=== PATIENT | female | born 1935 | race Caucasian/White ===

== ENCOUNTER 2016-10-26 09:56 | Outpatient (CLI) | payer MEDICARE, OTHER ==
--- NOTE | 2016-10-27 16:07 | Mammography Report ---
DIGITAL SCREENING MAMMOGRAM: 10/26/2016 CLINICAL INDICATION: A 80-year-old, for screening. COMPARISON: 09/2015, 08/2014, 01/2013, 03/2011, 04/2009. TECHNIQUE: Routine CC and MLO projections were obtained of the breasts. FINDINGS: The breasts again demonstrate scattered fibroglandular densities bilaterally. Coarse and p unctate, typically benign calcifications are present. No suspicious masses, clustered microcalcificat ions, or regions of architectural distortion are identified. IMPRESSION: BENIGN FINDINGS. RECOMMENDATION: ROUTINE ANNUAL SCREENING UNLESS OTHERWISE CLINICALLY INDICATED. BIRADS CATEGORY 2-BENIGN FINDINGS. STANDARD QUALIFYING STATEMENTS 1. This examination was reviewed with the aid of Computer-Aided Detection (CAD). 2. A negative or benign imaging report should not delay biopsy if clinically suspicious findings are present. Consider surgical consultation if warranted. More than 5% of cancers are not identified by i maging. 3. Dense breasts may obscure an underlying neoplasm. JOB #: [id number] EXT JOB #:[id number]
== END 2016-10-26 09:57 | disposition home or self-care (01) ==
LOC: DI 09:56
PROVIDERS: ATTEND Internal Medicine
DX: Z12.31 Encounter for screening mammogram for malignant neoplasm of breast (principal)
CPT/HCPCS: 77067

== ENCOUNTER 2017-04-04 15:23 | Outpatient (CLI) | payer MEDICARE, OTHER ==
--- NOTE | 2017-04-04 16:54 | XRAY Report ---
THREE VIEW RIGHT ANKLE: 04/04/2017 CLINICAL INDICATION: Pain. FINDINGS: AP, lateral, and oblique views of the right ankle demonstrate mild osteoarthritic changes. Plantar and posterior calcaneal spurring is present. There is no evidence of acute fracture or dislocation. Soft tissue swelling is noted. IMPRESSION: SOFT TISSUE SWELLING, BUT NO EVIDENCE OF ACUTE FRACTURE. TD: 04/04/2017 16:53
--- NOTE | 2017-04-04 16:56 | XRAY Report ---
THREE VIEW RIGHT FOOT: 04/04/2017 CLINICAL INDICATION: Pain. FINDINGS: AP, lateral, and oblique views of the right foot demonstrate no evidence of fracture or dislocation. Mild osteoarthritis is present. No foreign body is seen in the soft tissues. IMPRESSION: MILD OSTEOARTHRITIS. NO EVIDENCE OF FRACTURE. TD: 04/04/2017 16:55
== END 2017-04-04 15:24 | disposition home or self-care (01) ==
LOC: DI 15:23
PROVIDERS: ATTEND Internal Medicine
DX: M19.071 Primary osteoarthritis, right ankle and foot (principal); R22.41 Localized swelling, mass and lump, right lower limb

== ENCOUNTER 2018-03-17 05:30 | Outpatient (CLI) | payer MEDICARE, OTHER | END 2018-03-17 05:31 | disposition home or self-care (01) | LOC: EMS 05:30 | PROVIDERS: ATTEND Surgery | DX: R20.2 Paresthesia of skin (principal); I10 Essential (primary) hypertension | CPT/HCPCS: A0425; A0429 ==

== ENCOUNTER 2018-03-17 05:38 | Emergency (ER) | payer MEDICARE, OTHER ==
[2018-03-17] MEDS ORDERED: BUTALB/ACETAM/CAFF 50/325/40MG TABLET PO STA (05:50)
--- NOTE | 2018-03-17 06:03 | ED Physician Documentation ---
History of Present Illness - Stated complaint Stated Complaint: BILAT TINGLING FINGERTIPS - Chief complaint Chief Complaint: Ext Problem - History obtained from History obtained from: Patient - History of Present Illness Timing: Today Pain level max: 4 Pain level now: 4 - Additonal information Additional information: 82-year-old female who states she woke up at 445 this morning and felt tingling to both of her hands. She was sleeping on her stomach with her hands tucked underneath her. Symptoms are now resolving. No focal neurological deficits otherwise. No difficulty with speech. No difficulty walking. No numbness or tingling the other place besides the hands. No changes to her medications. Better with time, worse with sleeping on the hands. Patient also has a headache over the frontal sinuses. Gradual onset. Has been associated with nasal congestion and sinus pressure. Review of Systems Ten Systems: 10 systems reviewed and negative Constitutional: denies: Fever, Chills Nose: reports: Congestion, Sinus pressure / pain (Patient states that she has had sinus pressure for the past 6 weeks. This is been accompanied by intermittent headaches). denies: Rhinorrhea / runny nose Throat: denies: Sore throat Respiratory: denies: Cough GI: denies: Abdominal Pain, Nausea, Vomiting, Diarrhea Skin: denies: Rash Musculoskeletal: denies: Neck pain, Back pain Neurologic: denies: Focal weakness, Confused, Altered mental status, Head injury, LOC PD PAST MEDICAL HISTORY - Past Medical History Past Medical History: Yes Cardiovascular: Hypertension, High cholesterol Respiratory: None Neuro: TIA Endocrine/Autoimmune: None GI: None : None HEENT: Other Psych: None Musculoskeletal: Osteoarthritis, Other Derm: None - Past Surgical History Past Surgical History: Yes General: Appendectomy 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 - Present Medications Home Medications: Ambulatory Orders Medication Instructions Recorded Confirmed Ascorbate Calcium [Vitamin C] 480 gm PO DAILY 05/14/13 03/17/18 Colestipol HCl 1 gm PO BID 05/14/13 03/17/18 Ginkgo Biloba 400 mg PO DAILY 05/14/13 03/17/18 Glucosamine Sulfate Dipot Chlr 1,000 mg PO DAILY 05/14/13 03/17/18 [Glucosamine] Multivit-Min/FA/Lycopene/Lut 1 each PO DAILY 05/14/13 03/17/18 [Centrum Silver Tablet] [place]-3/Dha/Epa/Fish Oil [Fish Oil] 1,200 mg PO DAILY 05/14/13 03/17/18 Ubidecarenone [Co Q-10] 10 mg PO DAILY 05/14/13 03/17/18 Vitamin B Complex [Super B-50 1 each PO DAILY 05/14/13 03/17/18 Complex] Vitamin E 400 unit PO DAILY 05/14/13 03/17/18 Meloxicam [Mobic] 7.5 mg PO DAILY 11/20/14 03/17/18 Olmesartan/Hydrochlorothiazide 1 each PO DAILY 11/20/14 03/17/18 [Benicar Hct 40-25 mg Tablet] Butalb/Acetaminophen/Caffeine 1 cap PO Q6H PRN #14 capsule 03/17/18 [Fioricet 50-300-40 mg Capsule] Mometasone Furoate [Nasonex] 2 spray NS DAILY PRN #1 spray.pump 03/17/18 - Allergies Allergies/Adverse Reactions: Allergies Allergy/AdvReac Type Severity Reaction Status Date / Time Penicillins Allergy Severe Throat Verified 03/17/18 05:45 Swelling - Social History Does the pt smoke?: No Smoking Status: Never smoker Does the pt drink ETOH?: No Does the pt have substance abuse?: No - Immunizations Immunizations are current?: Yes - POLST Patient has POLST: No PD ED PE NORMAL - Vitals Vital signs reviewed: Yes - General General: Alert and oriented X 3, No acute distress - HEENT HEENT: PERRL, Moist mucous membranes, Pharynx benign - Neck Neck: Supple, no meningeal sign - Cardiac Cardiac: RRR, Strong equal pulses - Respiratory Respiratory: No respiratory distress, Clear bilaterally - Abdomen Abdomen: Soft, Non tender, Non distended - Back Back: No CVA TTP, No spinal TTP - Derm Derm: Warm and dry - Extremities Extremities: No edema, No calf tenderness / cord - Neuro Neuro: Alert and oriented X 3, excellence leader 2-12 intact, No motor deficit, No sensory deficit, Normal speech Eye Opening: Spontaneous Motor: Obeys Commands Verbal: Oriented GCS Score: 15 - Psych Psych: Normal mood, Normal affect Results - Vitals Vitals: Vital Signs - 24 hr 03/17/18 03/17/18 03/17/18 05:42 06:17 06:34 Temperature 36.1 C L Heart Rate 88 80 78 Respiratory 15 16 16 Rate Blood Pressure 153/93 H 156/84 H 156/84 H O2 Saturation 99 98 96 Oxygen O2 Source [With Activity] Room air O2 Source [Without Activity] Room air O2 Source Room air - Labs Labs: Laboratory Tests 03/17/18 03/17/18 05:50 05:50 WBC 5.4 RBC 4.65 Hgb 14.4 Hct 41.8 MCV 89.9 MCH 30.9 MCHC 34.4 RDW 13.2 Plt Count 221 MPV 8.4 Neut # (Auto) 2.8 Lymph # (Auto) 1.6 [place] # (Auto) 0.6 Eos # (Auto) 0.4 Baso # (Auto) 0.1 Absolute Nucleated RBC 0.00 Nucleated RBC % 0.1 Sodium 136 Potassium 3.6 Chloride 101 Carbon Dioxide 24 Anion Gap 11.0 BUN 24 H Creatinine 0.8 Estimated GFR (MDRD) 69 L Glucose 173 H Calcium 9.2 Phosphorus 3.2 Magnesium 2.1 PD MEDICAL DECISION MAKING - ED course Complexity details: reviewed results, re-evaluated patient, considered differential, d/w patient ED course: 82-year-old female with paresthesias to the bilateral hands, likely secondary to sleeping on the hands and compressing the nerves. No acute laboratory abnormalities. No evidence of stroke. No evidence of brain tumor. Ambulating normally. Will follow up with her PCP for further care. Also appears to have sinus congestion causing headaches, improved with butalbital. Will place on intranasal steroids. No fevers. Will hold antibiotics. Patient counseled regarding signs and symptoms for which I believe and urgent re-evaluation would be necessary. Patient with good understanding of and agreement to plan and is comfortable going home at this time This document was made in part using voice recognition software. While efforts are made to proofread this document, sound alike and grammatical errors may occur. Departure - Departure Disposition: 01 Home, Self Care Clinical Impression: Paresthesia of both hands Sinusitis Qualifiers: Sinusitis location: pansinusitis Chronicity: acute Recurrence: non-recurrent Qualified Code(s): J01.40 - Acute pansinusitis, unspecified Condition: Good Instructions: ED Headache Sinus, ED Sinusitis No Abx, ED Paraesthesias Follow-Up: Namrata Gutierrez MD [Primary Care Provider] - Within 1 week Prescriptions: Butalb/Acetaminophen/Caffeine [Fioricet 50-300-40 mg Capsule] 1 cap PO Q6H PRN #14 capsule PRN Reason: Headache Mometasone Furoate [Nasonex] 2 spray NS DAILY PRN #1 spray.pump PRN Reason: Nasal Congestion Comments: use the medications as prescribed. Return if you worsen. Follow-up with your doctor for further care. There are no acute lab abnormalities to explain your symptoms today. NIHSS - Time Time: 05:45 - Level of Consciousness Level of consciousness: (0) Alert, Keenly responsive LOC Questions: (0) Answers both Q's correct LOC Commands: (0) Performs both correctly - Gaze Best Gaze: (0) Normal - Visual Visual: (0) No loss - Facial Palsy Facial Palsy: (0) Normal, symmetrical movement - Motor Arms (both separate) Motor Arm (right): (0) No drift Motor Arm (left): (0) No drift - Motor Legs (both separate) Motor Leg (right): (0) No drift Motor Leg (left): (0) No drift - Limb Ataxia Limb Ataxia: (0) Absent - Sensory Sensory: (0) Normal - Best Language Best Language: (0) No aphasia - Dysarthria Dysarthria: (0) Normal - Extinction and Inattention (formally neg Extinction and inattention: (0) No abnormality - Total Score/Results Total Score/Result: 0
[2018-03-17 06:09] LABS: BASOPHILS # (AUTO) 0.1 10^3/uL (0.0-0.1); EOSINOPHILS # (AUTO) 0.4 10^3/uL (0.0-0.7); HGB - HEMOGLOBIN 14.4 g/dL (12.0-16.0); LYMPHOCYTES # (AUTO) 1.6 10^3/uL (1.5-3.5); MEAN CORPUSCULAR HEMOGLOBIN 30.9 pg (27.0-31.0); MEAN CORPUSCULAR HGB CONC 34.4 g/dL (32.0-36.0); MEAN CORPUSCULAR VOLUME 89.9 fL (81.0-99.0); MEAN PLATELET VOLUME 8.4 fL (7.9-10.8); MONOCYTES # (AUTO) 0.6 10^3/uL (0.0-1.0); MONOCYTES % (AUTO) 10.4 %; NEUTROPHILS # (AUTO) 2.8 10^3/uL (1.5-6.6); NEUTROPHILS % (AUTO) 51.6 %; PLT - PLATELET COUNT 221 10^3/uL (130-450); RED BLOOD COUNT 4.65 10^6/uL (4.20-5.40); RED CELL DISTRIBUTION WIDTH 13.2 % (12.0-15.0); WHITE BLOOD COUNT 5.4 x10^3/uL (4.8-10.8)
[2018-03-17] MEDS ORDERED: BUTALB/ACETAM/CAFF 50/325/40MG TABLET PO ONE (06:17)
[2018-03-17 06:19] LABS: CALCIUM 9.2 mg/dL (8.5-10.3); CREATININE 0.8 mg/dL (0.4-1.0); MAGNESIUM 2.1 mg/dL (1.7-2.8); PHOSPHORUS 3.2 mg/dL (2.5-4.6)
[2018-03-17 07:13] VITALS: BP 146/75
== END 2018-03-17 07:14 | disposition home or self-care (01) ==
LOC: EDUNIT# → ED 05:38
DX: R20.2 Paresthesia of skin (principal); I10 Essential (primary) hypertension; E78.00 Pure hypercholesterolemia, unspecified
CPT/HCPCS: 36415; 80048; 83735; 84100; 85025; 99283; A9270

== ENCOUNTER 2018-03-30 09:14 | Outpatient (CLI) | payer MEDICARE, OTHER ==
--- NOTE | 2018-03-30 12:52 | Ultrasound Report ---
Reason: ELEVATED LFT'S Procedure Date: 03/30/2018 Accession Number: [id number] / [id number] Procedure: US - Abdomen Limited CPT Code: FULL RESULT: EXAM: ABDOMEN ULTRASOUND LIMITED, RUQ EXAM DATE: 03/30/2018 10:35 AM. CLINICAL HISTORY: Elevated LFTs. COMPARISON: None. TECHNIQUE: Real-time scanning was performed with static images obtained. FINDINGS: Liver: Diffusely increased in echotexture favoring steatosis. There are multiple simple-appearing cysts noted with 2 adjacent cysts in the medial left lobe larger of which measures 2 cm. Clustered cyst in the right lateral lobe measuring 1.7 cm. Clustered cysts right anterior medial liver measuring 2.2 cm. 16.9 cm. Main portal vein flow: Hepatopetal. Gallbladder: Normal. No stones, wall thickening, or sonographic Tang's sign. Biliary System: CBD measures 5.7 mm. No intrahepatic or extrahepatic ductal dilatation. Other: Normal appearance of the right kidney. IMPRESSION: 1. Diffusely echogenic liver favors steatosis. 2. Scattered parenchymal cysts as described. RADIA
== END 2018-03-30 09:15 | disposition home or self-care (01) ==
LOC: DI 09:14
PROVIDERS: ATTEND Internal Medicine
DX: K76.0 Fatty (change of) liver, not elsewhere classified (principal); K76.89 Other specified diseases of liver; R74.8 Abnormal levels of other serum enzymes
CPT/HCPCS: 76705

== ENCOUNTER 2018-04-19 05:25 | Emergency (ER) | payer MEDICARE, OTHER ==
[2018-04-19 06:04] LABS: BASOPHILS % (AUTO) 0.9 %; EOSINOPHILS # (AUTO) 0.4 10^3/uL (0.0-0.7); EOSINOPHILS % (AUTO) 6.8 %; HGB - HEMOGLOBIN 14.6 g/dL (12.0-16.0); LYMPHOCYTES # (AUTO) 1.6 10^3/uL (1.5-3.5); LYMPHOCYTES % (AUTO) 28.2 %; MEAN CORPUSCULAR HEMOGLOBIN 29.9 pg (27.0-31.0); MEAN CORPUSCULAR HGB CONC 33.5 g/dL (32.0-36.0); MEAN CORPUSCULAR VOLUME 89.5 fL (81.0-99.0); MEAN PLATELET VOLUME 8.6 fL (7.9-10.8); MONOCYTES # (AUTO) 0.5 10^3/uL (0.0-1.0); MONOCYTES % (AUTO) 9.8 %; NEUTROPHILS % (AUTO) 54.3 %; PLT - PLATELET COUNT 196 10^3/uL (130-450); RED BLOOD COUNT 4.87 10^6/uL (4.20-5.40); RED CELL DISTRIBUTION WIDTH 13.4 % (12.0-15.0); WHITE BLOOD COUNT 5.6 x10^3/uL (4.8-10.8)
[2018-04-19 06:17] LABS: ALBUMIN 4.3 g/dL (3.2-5.5); ALBUMIN/GLOBULIN RATIO 1.6 (1.0-2.2); BILIRUBIN,TOTAL 0.8 mg/dL (0.2-1.0); CALCIUM 9.5 mg/dL (8.5-10.3); CREATININE 0.8 mg/dL (0.4-1.0)
--- NOTE | 2018-04-19 06:29 | XRAY Report ---
Reason: chest pain Procedure Date: 04/19/2018 Accession Number: [id number] / [id number] Procedure: XR - Chest 2 View X-Ray CPT Code: 30711 FULL RESULT: EXAM: CHEST RADIOGRAPHY EXAM DATE: 04/19/2018 06:17 AM. CLINICAL HISTORY: Chest pain. COMPARISON: CHEST 2 VIEW PA/LAT 11/20/2014 8:21 AM. TECHNIQUE: 2 views. FINDINGS: Lungs/Pleura: Focal opacity at the left apex. No pleural effusion seen. No pneumothorax. Mediastinum: Heart size appears normal. Aortic atherosclerosis. Other: None. IMPRESSION: 1. Focal 3 cm opacity at the left apex. Malignancy not excluded. RADIA
[2018-04-19] MEDS ORDERED: LIDOCAINE PATCH 5% TOP STA (06:48)
--- NOTE | 2018-04-19 06:51 | ED Physician Documentation ---
PD HPI CHEST PAIN - Stated complaint Stated Complaint: LT RIB PAIN - Chief complaint Chief Complaint: General - History obtained from History obtained from: Patient - History of Present Illness Timing - onset: How many hours ago (3) Timing - onset during: Sleep Timing - duration: Hours (3) Timing - details: Gradual onset Pain level max: 7 Pain level now: 7 Severity Comments: moderate Quality: Aching Location: Left chest Radiation: No: Jaw, Neck, Back, Abdominal Improved by: Rest Worsened by: Movement Associated symptoms: No: Shortness of air, Diaphoresis, Nausea Review of Systems Ten Systems: 10 systems reviewed and negative Constitutional: reports: Reviewed and negative Eyes: reports: Reviewed and negative Ears: reports: Reviewed and negative Nose: reports: Reviewed and negative Throat: reports: Reviewed and negative Cardiac: reports: Reviewed and negative Respiratory: reports: Reviewed and negative GI: reports: Reviewed and negative : reports: Reviewed and negative Skin: reports: Reviewed and negative Musculoskeletal: reports: Reviewed and negative Neurologic: reports: Reviewed and negative Psychiatric: reports: Reviewed and negative Endocrine: reports: Reviewed and negative Immunocompromised: reports: Reviewed and negative PD PAST MEDICAL HISTORY - Past Medical History Past Medical History: Yes Cardiovascular: Hypertension, High cholesterol, Deep vein thrombosis Respiratory: None Neuro: TIA Endocrine/Autoimmune: None GI: None : None HEENT: Other Psych: None Musculoskeletal: Osteoarthritis, Other Derm: None - Past Surgical History Past Surgical History: Yes General: Appendectomy 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 Medications Home Medications: Ambulatory Orders Medication Instructions Recorded Confirmed Ascorbate Calcium [Vitamin C] 480 gm PO DAILY 05/14/13 03/17/18 Colestipol HCl 1 gm PO BID 05/14/13 03/17/18 Ginkgo Biloba 400 mg PO DAILY 05/14/13 03/17/18 Glucosamine Sulfate Dipot Chlr 1,000 mg PO DAILY 05/14/13 03/17/18 [Glucosamine] Multivit-Min/FA/Lycopene/Lut 1 each PO DAILY 05/14/13 03/17/18 [Centrum Silver Tablet] [place]-3/Dha/Epa/Fish Oil [Fish Oil] 1,200 mg PO DAILY 05/14/13 03/17/18 Ubidecarenone [Co Q-10] 10 mg PO DAILY 05/14/13 03/17/18 Vitamin B Complex [Super B-50 1 each PO DAILY 05/14/13 03/17/18 Complex] Vitamin E 400 unit PO DAILY 05/14/13 03/17/18 Meloxicam [Mobic] 7.5 mg PO DAILY 11/20/14 03/17/18 Olmesartan/Hydrochlorothiazide 1 each PO DAILY 11/20/14 03/17/18 [Benicar Hct 40-25 mg Tablet] Butalb/Acetaminophen/Caffeine 1 cap PO Q6H PRN #14 capsule 03/17/18 [Fioricet 50-300-40 mg Capsule] Mometasone Furoate [Nasonex] 2 spray NS DAILY PRN #1 spray.pump 03/17/18 - Allergies Allergies/Adverse Reactions: Allergies Allergy/AdvReac Type Severity Reaction Status Date / Time Penicillins Allergy Severe Throat Verified 04/19/18 05:39 Swelling - Living Situation Living Situation: reports: With spouse/s.o. Living Arrangement: reports: At home - Social History Does the pt smoke?: No Smoking Status: Never smoker Does the pt drink ETOH?: No Does the pt have substance abuse?: No - Family History Family history: reports: Other (Reviewed and not pertinent) - Immunizations Immunizations are current?: Yes - POLST Patient has POLST: No PD ED PE NORMAL - Vitals Vital signs reviewed: Yes - General General: Alert and oriented X 3, No acute distress - HEENT HEENT: PERRL - Neck Neck: Supple, no meningeal sign - Cardiac Cardiac: RRR, No murmur, Other (Left chest wall tender to palpation.) - Respiratory Respiratory: Clear bilaterally - Abdomen Abdomen: Normal bowel sounds, Soft, Non tender, Non distended - Derm Derm: Warm and dry - Extremities Extremities: No deformity - Neuro Neuro: Alert and oriented X 3 - Psych Psych: Normal mood, Normal affect Results - Vitals Vitals: Vital Signs - 24 hr 04/19/18 04/19/18 05:30 06:02 Temperature 36.1 C L Heart Rate 92 84 Respiratory 17 11 L Rate Blood Pressure 129/81 H 160/81 H O2 Saturation 99 95 Oxygen O2 Source [With Activity] Room air O2 Source [Without Activity] Room air O2 Source Room air - EKG (time done) 0650 Rhythm: NSR Pimento: Normal Intervals: Normal AR, QRS normal QRS: Normal Ischemia: Normal ST segments - Labs Labs: Laboratory Tests 04/19/18 04/19/18 04/19/18 05:55 05:55 05:55 WBC 5.6 RBC 4.87 Hgb 14.6 Hct 43.6 MCV 89.5 MCH 29.9 MCHC 33.5 RDW 13.4 Plt Count 196 MPV 8.6 Neut # (Auto) 3.0 Lymph # (Auto) 1.6 [place] # (Auto) 0.5 Eos # (Auto) 0.4 Baso # (Auto) 0.0 Absolute Nucleated RBC 0.00 Nucleated RBC % 0.0 D-Dimer Sodium 137 Potassium 3.4 L Chloride 101 Carbon Dioxide 25 Anion Gap 11.0 BUN 19 Creatinine 0.8 Estimated GFR (MDRD) 69 L Glucose 189 H Calcium 9.5 Total Bilirubin 0.8 AST 31 ALT 40 Alkaline Phosphatase 66 Troponin I < 0.04 Total Protein 7.0 Albumin 4.3 Globulin 2.7 Albumin/Globulin Ratio 1.6 Lipase 33 04/19/18 05:55 WBC RBC Hgb Hct MCV MCH MCHC RDW Plt Count MPV Neut # (Auto) Lymph # (Auto) [place] # (Auto) Eos # (Auto) Baso # (Auto) Absolute Nucleated RBC Nucleated RBC % D-Dimer 236.9 Sodium Potassium Chloride Carbon Dioxide Anion Gap BUN Creatinine Estimated GFR (MDRD) Glucose Calcium Total Bilirubin AST ALT Alkaline Phosphatase Troponin I Total Protein Albumin Globulin Albumin/Globulin Ratio Lipase - Rads (name of study) Chest XRAY Radiology: Final report received (3 cm left apical opacity) PD MEDICAL DECISION MAKING - ED course Complexity details: reviewed results, re-evaluated patient, considered differential, d/w patient, d/w family ED course: 82-year-old female with several hours of left chest wall pain.Lung apex. CT chest with contrast pending at time of sign out to incoming provider. X-ray showed 3 cm opacity on the left unremarkable EKG, unremarkable labs including a negative troponin. D-dimer is negative with no clinical indication of pulmonary embolism. No evidence of dissection on chest x-ray.
[2018-04-19] MEDS ORDERED: IOVERSOL 320 100 ML VIAL IVP ONE ×2 (07:10→07:34)
--- NOTE | 2018-04-19 07:44 | CT Report ---
Reason: Left lung mass w pain Procedure Date: 04/19/2018 Accession Number: [id number] / [id number] Procedure: CT - CHEST W CPT Code: FULL RESULT: EXAM: CT CHEST EXAM DATE: 04/19/2018 07:30 AM. CLINICAL HISTORY: Left lung mass w pain. COMPARISONS: CHEST 2 VIEW 04/19/2018 5:53 AM. TECHNIQUE: Routine helical CT imaging was performed through the chest. IV contrast: None. Reconstructions: Coronal and sagittal. In accordance with CT protocol optimization, one or more of the following dose reduction techniques were utilized for this exam: automated exposure control, adjustment of mA and/or KV based on patient size, or use of iterative reconstructive technique. FINDINGS: Lungs/Pleura: Left apical mass with spiculated margins and pleural tail is noted measuring 3.2 x 2.9 cm. Additional 2 cm patchy focal inferior and lateral right upper lobe perifissural opacity seen (4/31). Tiny indeterminate 2 mm left lower lobe subpleural micronodule (4/42). Scattered pleural parenchymal scarring noted. No other consolidation. Bilateral central bronchial wall thickening is seen. No pleural effusions or pneumothorax. Mediastinum: Heterogeneous attenuation of the thyroid noted. Normal heart size. No pericardial effusion. Coronary artery calcification seen. Mild calcified atheromatous plaque of the aortic arch. No enlarged mediastinal hilar lymph nodes are seen. No central pulmonary artery filling defects. Bones: Focal sclerosis of the left lateral fifth rib is seen (3/25). No other focal lucent or sclerotic osseous lesions evident. Visualized Abdomen: Hypoattenuating liver lesions are noted in the right lobe measuring 2 cm and 2.8 cm respectively (3/68), indeterminate. Hepatic steatosis evident. Other: None. IMPRESSION: 1. 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 2. 2 cm patchy right upper lobe perifissural opacities indeterminate, possibly representing nonspecific infection or inflammation, however, metastasis not excluded. 3. No other focal airspace consolidation noted. Mild central bronchial wall thickening could reflect sequelae of chronic reactive airways or bronchitis. 4. No mediastinal or hilar lymphadenopathy. 5. Focal sclerosis of the left lateral fifth rib could represent metastatic disease. No other suspicious osseous lesions seen on CT. Correlation with nuclear bone scan should be considered for further evaluation. 6. Incidental hypoattenuating liver lesions are indeterminate. Dedicated liver MRI could be obtained for further evaluation. RADIA
--- NOTE | 2018-04-19 08:04 | ED Physician Documentation ---
PD HPI CHEST PAIN - Stated complaint Stated Complaint: LT RIB PAIN - Chief complaint Chief Complaint: General - History obtained from History obtained from: Patient, Family - History of Present Illness Timing - onset: How many days ago (4) Timing - onset during: Rest Timing - duration: Days (4) Timing - details: Gradual onset, Still present Pain level max: 7 Pain level now: 7 Quality: Sharp, Pain Location: Left chest Improved by: Rest Worsened by: Palpation, Position Associated symptoms: No: Shortness of air, Diaphoresis, Nausea, Vomiting, Feeling faint / dizzy, General Weakness, Palpitations, Cough, Other Similar symptoms before: Has not had sx before Recently seen: Not recently seen - Additional information Additional information: Previously well 82-year-old female has noticed a pain in her left chest wall that is specifically tender to palpation. She denies any respiratory component or skin changes. 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 - Present Medications Home Medications: Ambulatory Orders Medication Instructions Recorded Confirmed Ascorbate Calcium [Vitamin C] 480 gm PO DAILY 05/14/13 03/17/18 Colestipol HCl 1 gm PO BID 05/14/13 03/17/18 Ginkgo Biloba 400 mg PO DAILY 05/14/13 03/17/18 Glucosamine Sulfate Dipot Chlr 1,000 mg PO DAILY 05/14/13 03/17/18 [Glucosamine] Multivit-Min/FA/Lycopene/Lut 1 each PO DAILY 05/14/13 03/17/18 [Centrum Silver Tablet] [place]-3/Dha/Epa/Fish Oil [Fish Oil] 1,200 mg PO DAILY 05/14/13 03/17/18 Ubidecarenone [Co Q-10] 10 mg PO DAILY 05/14/13 03/17/18 Vitamin B Complex [Super B-50 1 each PO DAILY 05/14/13 03/17/18 Complex] Vitamin E 400 unit PO DAILY 05/14/13 03/17/18 Meloxicam [Mobic] 7.5 mg PO DAILY 11/20/14 03/17/18 Olmesartan/Hydrochlorothiazide 1 each PO DAILY 11/20/14 03/17/18 [Benicar Hct 40-25 mg Tablet] Butalb/Acetaminophen/Caffeine 1 cap PO Q6H PRN #14 capsule 03/17/18 [Fioricet 50-300-40 mg Capsule] Mometasone Furoate [Nasonex] 2 spray NS DAILY PRN #1 spray.pump 03/17/18 - Allergies Allergies/Adverse Reactions: Allergies Allergy/AdvReac Type Severity Reaction Status Date / Time Penicillins Allergy Severe Throat Verified 04/19/18 05:39 Swelling - Social History Does the pt smoke?: No Smoking Status: Never smoker Does the pt drink ETOH?: No Does the pt have substance abuse?: No - Immunizations Immunizations are current?: Yes - POLST Patient has POLST: No PD ED PE NORMAL - Vitals Vital signs reviewed: Yes (hypertensive) - General General: Alert and oriented X 3, No acute distress, Well developed/nourished - Respiratory Respiratory: No respiratory distress, Other (Tenderness to the lateral 9th rib ) - Abdomen Abdomen: Soft, Non tender - Derm Derm: Normal color, Warm and dry, No rash - Extremities Extremities: No deformity, No edema - Neuro Neuro: Alert and oriented X 3, v groove cutter 2-12 intact, No motor deficit, No sensory deficit, Normal speech Eye Opening: Spontaneous Motor: Obeys Commands Verbal: Oriented GCS Score: 15 - Psych Psych: Normal mood, Normal affect Results - Vitals Vitals: Vital Signs - 24 hr 04/19/18 04/19/18 04/19/18 05:30 06:02 08:00 Temperature 36.1 C L Heart Rate 92 84 87 Respiratory 17 11 L 18 Rate Blood Pressure 129/81 H 160/81 H 147/83 H O2 Saturation 99 95 94 Oxygen O2 Source [] Room air O2 Source [] Room air O2 Source Room air - Labs Labs: Laboratory Tests 04/19/18 04/19/18 04/19/18 05:55 05:55 05:55 WBC 5.6 RBC 4.87 Hgb 14.6 Hct 43.6 MCV 89.5 MCH 29.9 MCHC 33.5 RDW 13.4 Plt Count 196 MPV 8.6 Neut # (Auto) 3.0 Lymph # (Auto) 1.6 [place] # (Auto) 0.5 Eos # (Auto) 0.4 Baso # (Auto) 0.0 Absolute Nucleated RBC 0.00 Nucleated RBC % 0.0 D-Dimer Sodium 137 Potassium 3.4 L Chloride 101 Carbon Dioxide 25 Anion Gap 11.0 BUN 19 Creatinine 0.8 Estimated GFR (MDRD) 69 L Glucose 189 H Calcium 9.5 Total Bilirubin 0.8 AST 31 ALT 40 Alkaline Phosphatase 66 Troponin I < 0.04 Total Protein 7.0 Albumin 4.3 Globulin 2.7 Albumin/Globulin Ratio 1.6 Lipase 33 04/19/18 05:55 WBC RBC Hgb Hct MCV MCH MCHC RDW Plt Count MPV Neut # (Auto) Lymph # (Auto) [place] # (Auto) Eos # (Auto) Baso # (Auto) Absolute Nucleated RBC Nucleated RBC % D-Dimer 236.9 Sodium Potassium Chloride Carbon Dioxide Anion Gap BUN Creatinine Estimated GFR (MDRD) Glucose Calcium Total Bilirubin AST ALT Alkaline Phosphatase Troponin I Total Protein Albumin Globulin Albumin/Globulin Ratio Lipase - Rads (name of study) CT chest Radiology: Prelim report reviewed (Impression: 1. 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 2 2 cm patchy right upper lobe perifissural opacities indeterminate, possibly representing nonspecific infection or inflammation, however metastasis is not excluded. 3 No other focal airspace consolidation noted. Mild central bronchial wall thickening could reflect sequelae of chronic reactive airways or bronchitis. 4 No mediastinal or hilar lymphadenopathy. 5. Focal sclerosis of the left lateral fifth rib could represent metastatic disease. No other suspicious osseous lesions seen on CT. Correlation with nuclear bone scan should be considered for further evaluation. 6. Incidental hypoattenuating liver lesions are indeterminate. Dedicated liver MRI could be obtained for further evaluation.), EMP read indepedently, See rad report PD MEDICAL DECISION MAKING - ED course Complexity details: reviewed old records, reviewed results, considered differential, d/w patient, d/w family ED course: Previously well non-smoking 82-year-old female has developed left lateral chest wall pain and on evaluation appears to have an apical mass on the left side. CT scan appears to show carcinoma. There is evidence on CT scan of bony metastases. The report reads the fifth rib and I am seeing this on the ninth rib which correlates to where the patient's symptoms are. The patient has been made aware of her diagnosis and will follow up with Dr. Gutierrez for further workup and treatment. She has refused narcotic pain reliever today. Departure - Departure Disposition: 01 Home, Self Care Clinical Impression: Left-sided chest wall pain, Lung cancer metastatic to bone Condition: Stable Instructions: Bone Metastasis, Cancer Lung, Cancer Lung Dx Staging, Cancer Lung Plan Future Follow-Up: Namrata Gutierrez MD [Primary Care Provider] - Comments: Today it appears the pain you are having your side is related to a bony metastases from lung cancer. Follow-up with your primary care doctor for further diagnostic evaluation and treatment.
[2018-04-19 08:11] VITALS: BP 147/83
== END 2018-04-19 08:35 | disposition home or self-care (01) ==
LOC: ED 05:25
DX: C34.92 Malignant neoplasm of unspecified part of left bronchus or lung (principal); C79.51 Secondary malignant neoplasm of bone; I10 Essential (primary) hypertension; Z86.73 Personal history of transient ischemic attack (TIA), and cerebral infarction without residual deficits; Z86.718 Personal history of other venous thrombosis and embolism
CPT/HCPCS: 36415; 71046; 71260; 80053; 83690; 84484; 85025; 85379; 93005; 99283; 99284; A9270; Q9967

== ENCOUNTER 2018-04-25 08:49 | Outpatient (CLI) | payer MEDICARE, OTHER ==
--- NOTE | 2018-04-26 13:21 | Nuclear Medicine Report ---
Reason: RIB PAIN,FOCAL SCLEROSIS,L LATERAL 5TH RIB Procedure Date: 04/25/2018 Accession Number: [id number] / [id number] Procedure: NM - Bone Whole Body CPT Code: FULL RESULT: EXAM: 1. TRIPLE PHASE BONE SCAN 2. WHOLE BODY BONE SCAN EXAM DATE: 04/25/2018 02:34 PM. CLINICAL HISTORY: RIB PAIN,FOCAL SCLEROSIS,L LATERAL 5TH RIB. COMPARISON: CHEST W04/19/2018 7:20 AM. TECHNIQUE: Following the intravenous administration of 32.2 mCi of technetium 99m MDP , 3 phase (blood flow, blood pool, and delayed phase) imaging was performed over the abdomen. Subsequently, a whole-body scan was performed in anterior and posterior projections. Site-specific spot views of the region of interest were obtained in various projections. FINDINGS: The blood flow and blood pool images are unremarkable. On the delayed phase images, there is intensely increased radiotracer uptake in the left lateral fifth rib. There is focal intensely increased radiotracer uptake in the right lateral ninth rib. There is moderately increased uptake in the right lateral sixth rib. Whole-body images. 1. Focus of moderately increased uptake in the proximal left humerus. 2. Focus of intensely increased uptake on the right side of T8. 3. Focus of moderately increased uptake in the intertrochanteric right femur. 4. Small focus of mildly increased uptake in the mid shaft of the right femur. 5. Small, subtle focus of increased uptake in the posterior right iliac bone. 6. Asymmetrically increased uptake in the medial compartment of the left knee and in the left midfoot. 7. Focus of increased uptake on the right side of the lower cervical spine, probably degenerative facet uptake. 8. Increased uptake in the wrists bilaterally, probably degenerative. IMPRESSION: 1. No abnormal hyperemia on the blood flow or blood pool images. 2. There are multiple focal areas of increased radiotracer uptake in the axial and proximal appendicular skeleton. This is a pattern that is concerning for metastatic disease. RADIA
== END 2018-04-25 08:50 | disposition home or self-care (01) ==
LOC: DI 08:49
PROVIDERS: ATTEND Internal Medicine
DX: R93.7 Abnormal findings on diagnostic imaging of other parts of musculoskeletal system (principal)
CPT/HCPCS: 78306

== ENCOUNTER 2018-04-25 13:38 | Outpatient (CLI) | payer MEDICARE, OTHER ==
--- NOTE | 2018-04-26 10:29 | XRAY Report ---
Reason: ABNORMAL BONE SCAN Procedure Date: 04/25/2018 Accession Number: [id number] / [id number] Procedure: XR - Femur 2V LT CPT Code: FULL RESULT: EXAM: LEFT FEMUR RADIOGRAPHY EXAM DATE: 04/25/2018 02:33 PM. CLINICAL HISTORY: Abnormal bone scan. COMPARISON: BONE SCAN 04/25/2018 9:23 AM. TECHNIQUE: 2 views. FINDINGS: Bones: Normal. No fracture or bone lesion. Joints: Advanced degenerative changes are seen about the knee joint. Soft Tissues: Normal. No soft tissue swelling. IMPRESSION: Degenerative changes. RADIA
--- NOTE | 2018-04-26 10:30 | XRAY Report ---
Reason: Abnormal bone scan Procedure Date: 04/25/2018 Accession Number: [id number] / [id number] Procedure: XR - Cervical Spine 2 View CPT Code: FULL RESULT: EXAM: CERVICAL SPINE RADIOGRAPHY EXAM DATE: 04/25/2018 02:33 PM. CLINICAL HISTORY: Abnormal bone scan. COMPARISONS: CERVICAL SPINE COMPLETE 04/24/2013 12:10 PM BONE SCAN 04/25/2018 9:23 AM. TECHNIQUE: 2 views. FINDINGS: Alignment: Normal. No spondylolisthesis or scoliosis. Bones: The cervical vertebral bodies and posterior elements are well visualized from the skull base through C7-T1. The bones are qualitatively osteopenic; this limits evaluation for underlying fractures or masses. No definite fracture or bone lesion is detected. Disks: Multilevel degenerative disk disease which is most pronounced at C5-C6. Facets: Multilevel facet arthropathy with lateral mass hypertrophy, most pronounced at C4 through C6. Soft Tissues: Normal. No prevertebral soft tissue swelling. The visualized lung apices are clear. IMPRESSION: Degenerative changes. RADIA
--- NOTE | 2018-04-26 10:42 | XRAY Report ---
Reason: ABNORMAL BONE SCAN Procedure Date: 04/25/2018 Accession Number: [id number] / [id number] Procedure: XR - Thoracic Spine 2 View CPT Code: FULL RESULT: EXAM: THORACIC SPINE RADIOGRAPHY EXAM DATE: 04/25/2018 02:33 PM. CLINICAL HISTORY: Abnormal bone scan. COMPARISON: CHEST 2 VIEW 04/19/2018 5:53 AM BONE SCAN 04/25/2018 9:23 AM. TECHNIQUE: 2 views. FINDINGS: Alignment: Normal. No spondylolisthesis or scoliosis. Bones: The bones are qualitatively osteopenic; this limits evaluation for underlying fractures or masses. No definite sclerotic or lytic lesion is seen to correspond to the focus of hyperintensity on the bone scan. No fractures or bone lesions. Disks: Multilevel mild to moderate degenerative changes with disk osteophyte complex formation. Soft Tissues: Normal. The visualized lungs and cardiomediastinal silhouette are normal. IMPRESSION: Degenerative changes. RADIA
--- NOTE | 2018-04-26 10:42 | XRAY Report ---
Reason: ABNORMAL BONE SCAN Procedure Date: 04/25/2018 Accession Number: [id number] / [id number] Procedure: XR - Humerus LT CPT Code: FULL RESULT: EXAM: LEFT HUMERUS RADIOGRAPHY EXAM DATE: 04/25/2018 02:33 PM. CLINICAL HISTORY: Abnormal bone scan. COMPARISON: BONE SCAN 04/25/2018 9:23 AM. TECHNIQUE: 2 views. FINDINGS: Bones: There is question of a relatively well demarcated lytic lesion in the head of the humerus, 2.2 x 1.4 cm. This finding seen on the AP view only. No fractures. Joints: Normal. No effusions or subluxations in the visualized shoulder or elbow joints. Soft Tissues: Normal. No soft tissue swelling. IMPRESSION: Suggestion of well demarcated lytic lesion corresponding to the location of activity on the bone scan. RADIA
--- NOTE | 2018-04-27 09:23 | XRAY Report ---
Reason: ABNORMAL BONE SCAN Procedure Date: 04/25/2018 Accession Number: [id number] / [id number] Procedure: XR - Ribs 3 View BILAT CPT Code: FULL RESULT: EXAM: BILATERAL RIB RADIOGRAPHY EXAM DATE: 04/25/2018 02:33 PM. CLINICAL HISTORY: Abnormal bone scan. COMPARISON: CHEST 2 VIEW 04/19/2018 5:53 AM. BONE SCAN 04/25/2018 9:23 AM. HUMERUS LT 04/25/2018 1:52 PM. TECHNIQUE: 5 views. FINDINGS: Bones: The bones are qualitatively osteopenic; this limits evaluation for underlying fractures or masses. Within these limitations, no definite rib mass to correspond to the right and left foci of uptake in the ribs on the bone scan is identified. No fracture is seen. Lungs: Redemonstration of a 3 cm mass in the left lung apex. No pulmonary consolidation or masses in the remaining aerated lung. No pleural effusion or pneumothorax. Mediastinum: Heart and cardiomediastinal contours are stable with calcifications of the aortic arch. Other: The previously questioned lesion in the left humeral head is not definitely identified. IMPRESSION: No definite osseous lesions are noted in the setting of decreased sensitivity as above. Recommendation: Given concerning pattern of uptake in the axial and appendicular skeleton on the bone scan, unless a diagnosis has been established, the recommendation is for CT chest, abdomen and pelvis to identify a potential primary mass and suitable biopsy targets. PAIGE The call report notification system was initiated by Dr. Ricardo Worrell at 09:00 AM on 04/27/2018.
== END 2018-04-25 13:39 | disposition home or self-care (01) ==
LOC: DI 13:38
PROVIDERS: ATTEND Internal Medicine
DX: M17.12 Unilateral primary osteoarthritis, left knee (principal); M50.31 Other cervical disc degeneration, high cervical region; M47.9 Spondylosis, unspecified; M51.34 Other intervertebral disc degeneration, thoracic region
CPT/HCPCS: 71110; 72040; 72070; 78306

== ENCOUNTER 2018-05-19 07:09 | Outpatient (CLI) | payer MEDICARE, OTHER | END 2018-05-19 07:10 | disposition critical access hospital (66) | LOC: EMS 07:09 | PROVIDERS: ATTEND Surgery | DX: M25.559 Pain in unspecified hip (principal); W19.XXXA Unspecified fall, initial encounter; Y92.009 Unspecified place in unspecified non-institutional (private) residence as the place of occurrence of the external cause | CPT/HCPCS: A0425; A0429 ==

== ENCOUNTER 2018-05-19 07:18 | Emergency (ER) | payer MEDICARE, OTHER ==
--- NOTE | 2018-05-19 07:38 | ED Physician Documentation ---
History of Present Illness - Stated complaint Stated Complaint: HIP PX - Chief complaint Chief Complaint: Trauma Ext - History obtained from History obtained from: Patient, EMS - History of Present Illness Timing: Yesterday Pain level max: 7 Pain level now: 3 - Additonal information Additional information: 82-year-old female presents to the emergency department after falling off of an ottoman yesterday, landing on her left hip and buttocks. Pain gradually worsened throughout the day. Having difficulty walking today. Using a cane at home. Has not taken anything for the pain. Better with rest and worse with movement. 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 - 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 Medications Home Medications: Ambulatory Orders Medication Instructions Recorded Confirmed Ascorbate Calcium [Vitamin C] 480 gm PO DAILY 05/14/13 03/17/18 Colestipol HCl 1 gm PO BID 05/14/13 03/17/18 Ginkgo Biloba 400 mg PO DAILY 05/14/13 03/17/18 Glucosamine Sulfate Dipot Chlr 1,000 mg PO DAILY 05/14/13 03/17/18 [Glucosamine] Multivit-Min/FA/Lycopene/Lut 1 each PO DAILY 05/14/13 03/17/18 [Centrum Silver Tablet] [place]-3/Dha/Epa/Fish Oil [Fish Oil] 1,200 mg PO DAILY 05/14/13 03/17/18 Ubidecarenone [Co Q-10] 10 mg PO DAILY 05/14/13 03/17/18 Vitamin B Complex [Super B-50 1 each PO DAILY 05/14/13 03/17/18 Complex] Vitamin E 400 unit PO DAILY 05/14/13 03/17/18 Meloxicam [Mobic] 7.5 mg PO DAILY 11/20/14 03/17/18 Olmesartan/Hydrochlorothiazide 1 each PO DAILY 11/20/14 03/17/18 [Benicar Hct 40-25 mg Tablet] Butalb/Acetaminophen/Caffeine 1 cap PO Q6H PRN #14 capsule 03/17/18 [Fioricet 50-300-40 mg Capsule] Mometasone Furoate [Nasonex] 2 spray NS DAILY PRN #1 spray.pump 03/17/18 Hydrocodone/Acetaminophen 1 - 2 each PO Q6H PRN #7 tablet 05/19/18 [Hydrocodon-Acetaminophen 5-325] - Allergies Allergies/Adverse Reactions: Allergies Allergy/AdvReac Type Severity Reaction Status Date / Time Penicillins Allergy Severe Throat Verified 05/19/18 07:24 Swelling - Social History Does the pt smoke?: No Smoking Status: Never smoker Does the pt drink ETOH?: No Does the pt have substance abuse?: No - Immunizations Immunizations are current?: Yes - POLST Patient has POLST: No PD ED PE NORMAL - Vitals Vital signs reviewed: Yes - General General: Alert and oriented X 3, No acute distress - HEENT HEENT: Moist mucous membranes - Neck Neck: Supple, no meningeal sign - Cardiac Cardiac: RRR - Respiratory Respiratory: No respiratory distress, Clear bilaterally - Back Back: No spinal TTP - Derm Derm: Warm and dry - Extremities Extremities: Other (Tender to palpation over the greater trochanter of the left hip. Full range of motion of the hip however without pain. She is also tender over the left buttocks. Neurovascularly intact. No ecchymosis.) - Neuro Neuro: Alert and oriented X 3 - Psych Psych: Normal mood, Normal affect Results - Vitals Vitals: Vital Signs - 24 hr 05/19/18 05/19/18 07:21 11:16 Temperature 36.9 C 36.8 C Heart Rate 102 H 89 Respiratory 20 20 Rate Blood Pressure 147/87 H 151/70 H O2 Saturation 96 96 Oxygen O2 Source [] Room air O2 Source [] Room air O2 Source Room air - Rads (name of study) Left hip x-ray Radiology: Prelim report reviewed, EMP read contemporaneously, See rad report (Osteopenia. No fracture on x-ray imaging. 2. Bilateral hip and lower lumbar spine degenerative changes. Note: Osteopenia can limit detection of trabecular fracture. If the patient cannot ambulate, recommend MRI hip to exclude occult fracture. ) L hip CT Radiology: Prelim report reviewed, EMP read contemporaneously, See rad report (No displaced fracture. 2. Subtle contour deformity anterolateral aspect left femoral neck. This may be due to osteophyte. Subtle impaction fracture could also have this appearance. If continued clinical concern for fracture, MRI could be performed to evaluate for bone marrow edema. 3. Mild degenerative changes left hip with possible small joint effusion. ) L hip MRI Radiology: Prelim report reviewed, EMP read contemporaneously, See rad report (Lesions at the posterior medial aspect of the right iliac bone and posterior inferior aspect of the right femoral greater trochanter most concerning for metastatic disease. These lesions are also seen on the previous bone scan from 04/25/2018. . No acute fracture. 3. Probable small bone island at the left acetabulum. 4. Degenerative changes of the visualized lower lumbar spine. 5. Mild edema within the deep subcutaneous fat at the lateral aspect of the right buttock and upper thigh which may be inflammatory or posttraumatic. No hematoma is seen. 6. Sigmoid colon diverticulosis. ) PD MEDICAL DECISION MAKING - ED course Complexity details: reviewed results, re-evaluated patient, considered differential, d/w patient, d/w family ED course: 82-year-old female presents to the emergency department status post a fall yesterday. She is having difficulty walking and is unable to ambulate independently. Even had difficulty with a walker. Refused any pain medication stronger than Tylenol. Initial x-ray was negative, but due to her osteopenia and inability to walk, CT was performed which showed a possible fracture, therefore MRI was performed. This is negative for acute fracture. Reviewed the other MRI findings with the patient and her family. Social work was consulted and evaluated the patient and provided resources. Patient does not want to go to assisted living or rehab. She chooses to go home at this time. She is able to ambulate with a walker. Patient and family counseled regarding signs and symptoms for which I believe and urgent re-evaluation would be necessary. Patient with good understanding of and agreement to plan and is comfortable going home at this time This document was made in part using voice recognition software. While efforts are made to proofread this document, sound alike and grammatical errors may occur. Departure - Departure Disposition: 01 Home, Self Care Clinical Impression: Contusion of left hip Qualifiers: Encounter type: initial encounter Qualified Code(s): S70.02XA - Contusion of left hip, initial encounter Condition: Good Instructions: ED Contusion Hip Follow-Up: Namrata Gutierrez MD [Primary Care Provider] - Within 1 week Prescriptions: Hydrocodone/Acetaminophen [Hydrocodon-Acetaminophen 5-325] 1 - 2 each PO Q6H PRN #7 tablet PRN Reason: pain Comments: Use the walker at home to help you move around. You can use Tylenol at home for pain. Return if you worsen. Discharge Date/Time: 05/19/18 12:16
--- NOTE | 2018-05-19 08:18 | XRAY Report ---
Reason: fall, L hip pain Procedure Date: 05/19/2018 Accession Number: [id number] / [id number] Procedure: XR - Hip w/Pelvis 2-3V LT CPT Code: FULL RESULT: EXAM: LEFT HIP RADIOGRAPHY EXAM DATE: 05/19/2018 07:55 AM HISTORY: Fall, L hip pain. COMPARISONS: RIBS 3 VIEW BILAT 04/25/2018 1:52 PM. TECHNIQUE: 2 views. FINDINGS: Bones: Osteopenia is present. No fractures or bone lesion. Joints: Bilateral hip joint space narrowing. No dislocation. Loss of disk space height at L4-L5 level on the right. Soft Tissues: Normal. No soft tissue swelling. IMPRESSION: 1. Osteopenia. No fracture on x-ray imaging. 2. Bilateral hip and lower lumbar spine degenerative changes. Note: Osteopenia can limit detection of trabecular fracture. If the patient cannot ambulate, recommend MRI hip to exclude occult fracture. RADIA
[2018-05-19] MEDS ORDERED: HYDROcod/ACETAM 5/325 MG TABLET PO STA (08:34)
[2018-05-19] MEDS ORDERED: ACETAMINOPHEN 325 MG TABLET PO STA (08:42)
--- NOTE | 2018-05-19 09:40 | CT Report ---
Reason: L hip pain s/p fall Procedure Date: 05/19/2018 Accession Number: [id number] / [id number] Procedure: CT - LOWER EXTREMITY WO - LT CPT Code: FULL RESULT: EXAM: LEFT HIP CT WITHOUT CONTRAST EXAM DATE: 05/19/2018 09:10 AM. CLINICAL HISTORY: Left hip pain status post fall. COMPARISON: Radiographs 05/19/2018. TECHNIQUE: Thin-section axial images were acquired of the hip without contrast. Post-processing: Coronal and sagittal reformats. Other: None. In accordance with CT protocol optimization, one or more of the following dose reduction techniques were utilized for this exam: automated exposure control, adjustment of mA and/or KV based on patient size, or use of iterative reconstructive technique. FINDINGS: Bones: No discrete displaced fracture. Evaluation for nondisplaced fracture limited on CT, particularly in the setting of osteopenia. Subtle contour deformity at the anterolateral aspect left femoral head/neck junction (axial image 159 of series 3). Benign bone island left supra-acetabular region. Left hip: Mild degenerative changes. Possible small joint effusion. Other joints: Moderate to severe degenerative disk and facet changes partially visualized lower lumbar spine. Mild degenerative changes at the left sacroiliac joint and pubic symphysis. Musculature: Mild fatty atrophy posterior paraspinous and left gluteal muscles. Limited evaluation for muscle edema on CT. Other: Moderate atherosclerosis partially visualized in the abdominal aorta and bilateral iliac arteries. Multiple sigmoid diverticula. No inflammatory changes. No free fluid or enlarged lymph node. IMPRESSION: 1. No displaced fracture. 2. Subtle contour deformity anterolateral aspect left femoral neck. This may be due to osteophyte. Subtle impaction fracture could also have this appearance. If continued clinical concern for fracture, MRI could be performed to evaluate for bone marrow edema. 3. Mild degenerative changes left hip with possible small joint effusion. RADIA
--- NOTE | 2018-05-19 11:08 | MRI Report ---
Reason: L hip pain Procedure Date: 05/19/2018 Accession Number: [id number] / [id number] Procedure: MRI - Hip LT W/O CPT Code: FULL RESULT: EXAM: LEFT HIP MRI WITHOUT CONTRAST EXAM DATE: 05/19/2018 10:46 AM. CLINICAL HISTORY: Left hip pain and limited range of motion. Previous fall on 05/18/2018. COMPARISON: Left hip CT from 05/19/2018 BONE SCAN 04/25/2018 9:23 AM. TECHNIQUE: Multiplanar, multisequence T1-weighted and fluid-sensitive, small [id number] sequences of the hip and large aubon-om-otul sequences of the pelvis without contrast. Other: None. FINDINGS: Bones: No acute fracture. There is an approximately 1.9 x 1.9 x 1.6 cm T1 isointense and T2 hyperintense lesion at the posterior medial aspect of the right iliac bone, adjacent to the anteroinferior aspect of the right sacroiliac joint. There is an approximately 3.1 x 2.3 x 1.6 cm similar-appearing lesion at the posterior inferior aspect of the right femoral greater trochanter. There is a small 6 x 5 mm hypointense lesion at the superior aspect of the left acetabulum which most likely represents a bone island. Left Hip: No acetabular retroversion. Femoral head/neck offset is within normal limits. No effusion or loose bodies. The articular cartilage is intact. The labrum is unremarkable on this nonarthrographic study. The ligamentum teres is intact. Other Joints: Degenerative changes at the visualized lower lumbar spine. The sacroiliac joints and pubic symphysis are unremarkable. The left hip is unremarkable. Musculature: No edema or fatty atrophy. The gluteus medius and minimus tendons are normal. The visualized hamstring tendons are normal. Borderline decreased ischiofemoral spaces. Pelvic Cavity: Sigmoid colon diverticulosis is present. No free fluid or lymphadenopathy. Other: The visualized sciatic nerves are unremarkable. No bursitis. Mild edema within the deep subcutaneous fat at the lateral aspect of the right buttock and upper thigh. No hematoma. IMPRESSION: 1. Lesions at the posterior medial aspect of the right iliac bone and posterior inferior aspect of the right femoral greater trochanter most concerning for metastatic disease. These lesions are also seen on the previous bone scan from 04/25/2018. 2. No acute fracture. 3. Probable small bone island at the left acetabulum. 4. Degenerative changes of the visualized lower lumbar spine. 5. Mild edema within the deep subcutaneous fat at the lateral aspect of the right buttock and upper thigh which may be inflammatory or posttraumatic. No hematoma is seen. 6. Sigmoid colon diverticulosis. [facility] MUSCULOSKELETAL RADIOLOGY SECTION
[2018-05-19 11:17] VITALS: BP 151/70
== END 2018-05-19 12:16 | disposition home or self-care (01) ==
LOC: EDUNIT# → ED 07:18
DX: S70.02XA Contusion of left hip, initial encounter (principal); W08.XXXA Fall from other furniture, initial encounter; M16.12 Unilateral primary osteoarthritis, left hip; M85.88 Other specified disorders of bone density and structure, other site; I10 Essential (primary) hypertension
CPT/HCPCS: 73502; 73700; 73721; 99283; 99284; A9270

== ENCOUNTER 2020-04-03 14:05 | Outpatient (CLI) | payer MEDICARE, OTHER | END 2020-04-03 14:06 | disposition home or self-care (01) | LOC: NS 14:05 | PROVIDERS: ATTEND Internal Medicine | DX: Z71.3 Dietary counseling and surveillance (principal); E11.9 Type 2 diabetes mellitus without complications; I25.10 Atherosclerotic heart disease of native coronary artery without angina pectoris | CPT/HCPCS: 97802 ==

== ENCOUNTER 2020-05-22 13:58 | Outpatient (CLI) | payer MEDICARE, OTHER | END 2020-05-22 13:59 | disposition home or self-care (01) | LOC: NS 13:58 | PROVIDERS: ATTEND Internal Medicine | DX: Z71.3 Dietary counseling and surveillance (principal); E11.9 Type 2 diabetes mellitus without complications; I25.10 Atherosclerotic heart disease of native coronary artery without angina pectoris | CPT/HCPCS: 97803 ==

== ENCOUNTER 2020-11-05 13:21 | Outpatient (CLI) | payer MEDICARE, OTHER | END 2020-11-05 13:22 | disposition critical access hospital (66) | LOC: EMS 13:21 | DX: T63.461A Toxic effect of venom of wasps, accidental (unintentional), initial encounter (principal) | CPT/HCPCS: A0425; A0427 ==

== ENCOUNTER 2020-11-05 13:48 | Emergency (ER) | payer MEDICARE, OTHER ==
--- NOTE | 2020-11-05 14:40 | ED Physician Documentation ---
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 She got stung this afternoon right around 145 she had her EpiPen on her and used it. She did not have any significant symptoms at that time. The ambulance was called and she was given Benadryl IV now she feels fine. She is not short of breath had no diffuse rash no difficulty swallowing no nausea or vomiting. She does have a little bit of an itchy spot right where the bee got her on the left forearm. Patient does have lung cancer chemotherapy that she was placed on caused pneumonitis that she takes prednisone 5 mg orally daily. Review of Systems Constitutional: denies: Fever Throat: denies: Sore throat Cardiac: denies: Palpitations Respiratory: denies: Dyspnea GI: denies: Nausea, Vomiting Skin: reports: Bite / sting (L forearm). denies: Rash PD PAST MEDICAL HISTORY - Past Medical History Cardiovascular: Hypertension, High cholesterol, Deep vein thrombosis Respiratory: None Neuro: TIA Endocrine/Autoimmune: None GI: None : None HEENT: Other Psych: None Musculoskeletal: Osteoarthritis, Other Derm: None - Past Surgical History Past Surgical History: Yes General: Appendectomy Ortho: Other /[employer]: section - Present Medications Home Medications: Ambulatory Orders Medication Instructions Recorded Confirmed Ascorbate Calcium [Vitamin C] 480 gm PO DAILY 05/14/13 03/17/18 Colestipol HCl 1 gm PO BID 05/14/13 03/17/18 Ginkgo Biloba 400 mg PO DAILY 05/14/13 03/17/18 Glucosamine Sulfate Dipot Chlr 1,000 mg PO DAILY 05/14/13 03/17/18 [Glucosamine] Multivit-Min/FA/Lycopene/Lut 1 each PO DAILY 05/14/13 03/17/18 [Centrum Silver Tablet] Estelline-3/Dha/Epa/Fish Oil [Fish Oil] 1,200 mg PO DAILY 05/14/13 03/17/18 Ubidecarenone [Co Q-10] 10 mg PO DAILY 05/14/13 03/17/18 Vitamin B Complex [Super B-50 1 each PO DAILY 05/14/13 03/17/18 Complex] Vitamin E 400 unit PO DAILY 05/14/13 03/17/18 Meloxicam [Mobic] 7.5 mg PO DAILY 11/20/14 03/17/18 Olmesartan/Hydrochlorothiazide 1 each PO DAILY 11/20/14 03/17/18 [Benicar Hct 40-25 mg Tablet] Butalb/Acetaminophen/Caffeine 1 cap PO Q6H PRN #14 capsule 03/17/18 [Fioricet 50-300-40 mg Capsule] Mometasone Furoate [Nasonex] 2 spray NS DAILY PRN #1 spray.pump 03/17/18 Hydrocodone/Acetaminophen 1 - 2 each PO Q6H PRN #7 tablet 05/19/18 [Hydrocodon-Acetaminophen 5-325] predniSONE [Deltasone] 60 mg PO DAILY 3 Days #9 tablet 11/05/20 - Allergies Allergies/Adverse Reactions: Allergies Allergy/AdvReac Type Severity Reaction Status Date / Time Penicillins Allergy Severe Throat Verified 11/05/20 14:35 Swelling hornet venom Allergy Anaphylaxis Verified 11/05/20 14:35 - Social History Does the pt smoke?: No Smoking Status: Never smoker Does the pt drink ETOH?: No Does the pt have substance abuse?: No - Immunizations Immunizations are current?: Yes - POLST Patient has POLST: No PD ED PE NORMAL - Vitals Vital signs reviewed: Yes - General General: Alert and oriented X 3, No acute distress, Well developed/nourished - HEENT HEENT: Atraumatic, PERRL, Other (No oral edema) - Cardiac Cardiac: RRR, No murmur - Respiratory Respiratory: No respiratory distress - Abdomen Abdomen: Normal bowel sounds, Soft - Extremities Extremities: Other (L forearm quarter sized area of erythema) - Neuro Neuro: Alert and oriented X 3, free lance artist 2-12 intact, No motor deficit, No sensory deficit, Normal speech - Psych Psych: Normal mood Results - Vitals Vitals: Vital Signs - 24 hr 11/05/20 11/05/20 11/05/20 14:21 14:25 14:45 Temperature 36.4 C L 98.6 C H Heart Rate 94 86 93 Respiratory 16 14 18 Rate Blood Pressure 153/74 H 145/79 H 133/101 H O2 Saturation 98 98 94 Oxygen O2 Source [With Activity] Room air O2 Source [Without Activity] Room air O2 Source Room air PD MEDICAL DECISION MAKING - ED course ED course: 1 hour post epi administration for yellowjacket sting. Lungs are clear, no oral edema and she is not tachycardic. Recommended that she take Benadryl 1 every 6 hours for the next 48 hours[address] No [address]. Also recommended prednisone 60 mg daily for the next 3 days. She like to check with her oncologist before increasing her prednisone and will do that after discharge. Departure - Departure Disposition: 01 Home, Self Care Clinical Impression: Insect bites and stings Condition: Good Instructions: ED Bite Sting Insect Gen Allergic React Follow-Up: doctor, your [Other] Prescriptions: predniSONE [Deltasone] 60 mg PO DAILY 3 Days #9 tablet Comments: Be sure to carry your EpiPen with you. Take Benadryl 1 tablet (25mg) every 6 hours [id number] for the next 28 hours. Recommend increasing her prednisone to 60 mg daily for the next 3 days. Prescri ption was sent to [facility] in [place]. Return if you have any difficulty breathing, signs of fever, spreading rash or other problems arise.
[2020-11-05 15:27] VITALS: BP 152/78
== END 2020-11-05 15:28 | disposition home or self-care (01) ==
LOC: EDUNIT# → ED 13:48
DX: T63.461A Toxic effect of venom of wasps, accidental (unintentional), initial encounter (principal); L53.0 Toxic erythema; C34.90 Malignant neoplasm of unspecified part of unspecified bronchus or lung; Z79.899 Other long term (current) drug therapy
CPT/HCPCS: 99283; 99284

== ENCOUNTER 2022-08-04 11:06 | Outpatient (CLI) | payer MEDICARE, OTHER ==
--- NOTE | 2022-08-04 20:46 | XRAY Report ---
PROCEDURE: Hip w/Pelvis 2-3V LT INDICATIONS: HIP PAIN TECHNIQUE: AP pelvis with lateral view(s) of the left hip(s). COMPARISON: Pelvic radiographs 05/19/2018. FINDINGS: Bones: No fractures or dislocations. Moderate bilateral hip joint space loss. Acetabular roof scler osis. Overall findings similar to 2019. No suspicious bony lesions. Soft tissues: No suspicious soft tissue calcifications or masses. IMPRESSION: Moderate bilateral hip DJD, similar. Reviewed by: Rojelio Russ MD on 08/04/2022 8:44 PM PDT Approved by: Rojelio Russ MD on 08/04/2022 8:44 PM PDT Station ID: [id number]
== END 2022-08-04 11:07 | disposition home or self-care (01) ==
LOC: DI 11:06
PROVIDERS: ATTEND Internal Medicine
DX: M16.0 Bilateral primary osteoarthritis of hip (principal)

== ENCOUNTER 2022-09-14 08:13 | Outpatient (CLI) | payer MEDICARE, OTHER ==
--- NOTE | 2022-09-14 11:47 | DEXA Report ---
PROCEDURE: Dexa Spine and/or Hip INDICATIONS: POST MENOPAUSAL, SCREENING FOR OSTEOPOROSIS TECHNIQUE: Dual energy x-ray absorptiometry (DXA) was performed on a [employer] System. Regions measur ed are the AP Spine, femoral neck, and if needed forearm. COMPARISON: None FINDINGS: Lumbar Spine: Bone Mineral Density 1.423 g/cm/cm,T score 2.0. Left Femoral Neck: Bone Mineral Density 0.855 g/cm/cm, T score -1.3, minimal osteopenia. Left Hip: Bone Mineral Density 0.927 g/cm/cm,T score -0.6. (T score greater or equal to -1.0: NORMAL) (T score from -1.1 to -2.4: OSTEOPENIA) (T score less than or equal to -2.5 to: OSTEOPOROSIS) Impression: By WHO criteria, this patient has low bone density (osteopenia of the hip. Patients with diagnosis of osteoporosis or osteopenia should have regular bone mineral density assess ment. For those eligible for Medicare, routine testing is allowed once every 2 years. Testing frequ ency can be increased for patients who have rapidly progressing disease or for those who are receivin g medical therapy to restore bone mass. Reviewed by: Renetta Ballard MD on 09/14/2022 11:46 AM PDT Approved by: Renetta Ballard MD on 09/14/2022 11:46 AM PDT Station ID: [id number]
== END 2022-09-14 08:14 | disposition home or self-care (01) ==
LOC: DI 08:13
PROVIDERS: ATTEND Internal Medicine
DX: Z78.0 Asymptomatic menopausal state (principal); Z13.820 Encounter for screening for osteoporosis; M85.88 Other specified disorders of bone density and structure, other site